=== PATIENT | female | born 1980 | race Caucasian/White ===

== ENCOUNTER 2016-08-27 14:19 | Emergency (ER) | payer SELFPAY ==
[2016-08-27 15:19] VITALS: TEMP 97.8
--- NOTE | 2016-08-27 15:38 | ED.PDOC ---
History of Present Illness - General Chief Complaint: Abdominal Pain Stated Complaint: abdominal pain Time Seen by Provider: 08/27/16 15:08 Source: patient Exam Limitations: no limitations - History of Present Illness Initial Comments: Patient presents with 4 hours of bilateral abdominal and back pain. It is constant but intermittent in intensity. Sharp in nature. Worse with movement, better with rest. + N but no V. No diarrhea. Last meal was this morning. No hematochezia. Is not currently menstruating. She had a similar pain with her LMP. She says that her mother had the same pain that turned out to be an ovarian cyst. Patient has had a C/S but no other surgeries. No other complaints. Timing/Duration: 4-6 hours Severity: moderate Improving Factors: rest Worsening Factors: movement Associated Symptoms: other - see HPI Allergies/Adverse Reactions: Allergies NO KNOWN ALLERGY Allergy (Verified 08/27/16 15:18) Home Medications: Ambulatory Orders Methylprednisolone [Medrol Dose Jack] 4 mg PO DAILY #1 pack 09/24/15 Ketorolac Tromethamine [Toradol Tabs] 10 mg PO Q6HRS PRN #10 tab 08/27/16 Review of Systems - Review of Systems Constitutional: States: no symptoms reported EENTM: States: no symptoms reported Respiratory: States: no symptoms reported Cardiology: States: no symptoms reported Gastrointestinal/Abdominal: States: see HPI Genitourinary: States: no symptoms reported Musculoskeletal: States: no symptoms reported Skin: States: no symptoms reported Neurological: States: no symptoms reported Endocrine: States: no symptoms reported Hematologic/Lymphatic: States: no symptoms reported Past Medical History (General) - Patient Medical History Hx Hypertension: No Hx Diabetes: No Surgical History: other - Vaccination History Hx Tetanus, Diphtheria Vaccination: Yes - Social History Hx Tobacco Use: Yes Hx Alcohol Use: Yes - occ Hx Substance Use: No Hx Substance Use Treatment: No Hx Depression: No - Activities of Daily Living Hospice Agency (if applicable):: None - Female History Patient is a Female of Child Bearing Age (10 -59 yrs old): Yes Patient : No - Triage Comment ED Triage Comment: LMP 3 weeks ago Family Medical History - Family History Mother Family History: No Known Living Status: Still Living Physical Exam - Physical Exam General Appearance: Alert Respiratory: lungs clear Cardiovascular/Chest: normal peripheral pulses, regular rate, rhythm Gastrointestinal/Abdominal: normal bowel sounds, soft, other - TTP at LUQ. No CVA tenderness. No guarding nor rebound. Negative Rovsing's. Negative Psoas and Obturator signs. Back Exam: no CVA tenderness Skin Exam: normal color Lymphatic: no adenopathy Progress - Progress Progress: 08/27/16 17:09 Labs wnl. Pelvic U/S found left ovarian cysts and uterine fibroids. Patient sent home with RX for toradol and orders to follow up with gynecology. Laboratory Tests 08/27/16 08/27/16 08/27/16 15:30 15:30 15:30 WBC 10.6 RBC 4.55 Hgb 14.3 Hct 42.0 MCV 92.5 MCH 31.4 H MCHC 34.0 RDW 13.9 Plt Count 249 MPV 7.2 L Absolute Neuts (auto) 7.10 H Absolute Lymphs (auto) 2.70 Absolute Monos (auto) 0.70 Absolute Eos (auto) 0.10 Absolute Basos (auto) 0.10 Neutrophils % 67.2 Lymphocytes % 25.4 Monocytes % 6.1 Eosinophils % 0.7 L Basophils % 0.6 Sodium 137 Potassium 3.6 Chloride 105 Carbon Dioxide 23 Anion Gap 12.6 BUN 17 Creatinine 0.59 L BUN/Creatinine Ratio 28.8 H Random Glucose 88 Serum Osmolality 274.8 L Calcium 9.2 Total Bilirubin 0.6 AST 19 ALT 19 Alkaline Phosphatase 41 L Serum Total Protein 7.0 Albumin 4.2 Globulin 2.8 Albumin/Globulin Ratio 1.5 Lipase 23 Urine HCG, Qual Negative Departure - Departure Clinical Impression: Fibroids, Ovarian cyst Disposition: Discharge to Home or Self Care Condition: Good Departure Forms: ED Discharge - Pt. Copy, Patient Portal Self Enrollment Instructions: DI for Abdominal Pain-Adult Diet: resume usual diet Activity: increase activity as tolerated Prescriptions: Ketorolac Tromethamine [Toradol Tabs] 10 mg PO Q6HRS PRN #10 tab PRN Reason: Pain Home Medications: Ambulatory Orders Methylprednisolone [Medrol Dose Jack] 4 mg PO DAILY #1 pack 09/24/15 Ketorolac Tromethamine [Toradol Tabs] 10 mg PO Q6HRS PRN #10 tab 08/27/16
--- NOTE | 2016-08-27 17:16 | US ---
EXAM DESCRIPTION: Pelvic,Non-OB CLINICAL HISTORY: 35 years Female abdominal pain COMPARISON: None. TECHNIQUE: Transvaginal real-time, heller scale imaging performed to evaluate the pelvis. FINDINGS: Uterus measures 9.3 x 4.2 x 4.3 cm. Endometrium 5 mm. There is an echogenic mass with some foci of calcification in the anterior aspect of the body of the uterus measuring 2.5 x 2.1 x 1.7 cm. Is appears myometrial. It compresses the endometrium slightly. Additional myometrial fibroid measures 2 x 2.2 cm. Minimal fluid in the cul-de-sac. Left ovary measures 2.5 x 2.7 x 3.8 cm with small follicles and normal blood flow. Right ovary measures 2.1 x 2.3 x 1.4 cm with normal blood flow and small follicles. IMPRESSION: Two discrete uterine fibroids Bilateral ovarian follicles which do not warrant follow-up. Electronically signed by: Radha Lopez 08/27/2016 5:14 PM CDT
[2016-08-27 18:26] VITALS: BP 144/77; O2SAT 98
== END 2016-08-27 18:17 | disposition home or self-care (01) ==
LOC: ER 14:19
DX: N83.202 Unspecified ovarian cyst, left side (principal); D25.9 Leiomyoma of uterus, unspecified; Z87.891 Personal history of nicotine dependence

== ENCOUNTER → 2018-12-03 | Outpatient (CLI) | payer OTHER ==
--- NOTE | 2018-12-03 15:49 | US ---
EXAM DESCRIPTION: Diagnostic Mammo,Bilateral (accession [id number]), Breast,Bilateral (accession [id number]): Ultrasound CLINICAL HISTORY: 38 yearsFemaleLUMP IN BOTH BREASTS palpable lumps in both breasts. Pea-sized. No personal or family history of breast cancer. Menarche age 11. Childbirth. Premenopausal. No HRT Lifetime risk of developing breast cancer (Tyrer-Cuzick model)(%): 9.0. COMPARISON: 2-D digital screening bilateral mammography 12/26/2015. TECHNIQUE: Bilateral CC, MLO, and LM projection full-field images, digital mammographic tomosynthesis technique. Bilateral 2-D digital full-field images. CC, MLO, and LM projections. CAD not available. . Transcutaneous scanning of the bilateral breasts utilizing heller-scale and Doppler modes. Scanning performed by the tuber machine operator and observation by Dr. Russo. Skin markers were used to indicate palpated masses. FINDINGS: The breast parenchymal density pattern is: Heterogeneously dense breast tissue, which may obscure small masses. No skin thickening or nipple retraction and marker on the upper outer quadrant of the posterior third of the right breast. Skin marker on the lower inner quadrant of the anterior third of the left breast. No mammographic abnormalities associated with the skin markers. Retroareolar calcification left. Bilateral solitary microcalcifications. Right axillary lymph nodes. No new focal, stellate mass or density, focal asymmetry , and no suspicious microcalcifications bilaterally. The fibroglandular densities have decreased since the prior study. Ultrasound: Scanning of the lower inner quadrant of the anterior third of the left breast. Scanning of the upper outer quadrant of the posterior third of the right breast. These are the locations of the skin markers and what patient palpates. Heterogeneous fibroglandular with minimal fatty replacement. No dominant solid mass or distinct cyst. No parenchymal edema or large calcifications. No overlying skin changes. IMPRESSION: Benign exam. BIRAD CATEGORY: 2 BENIGN FINDINGS. RECOMMENDATIONS: FOLLOW UP: Begin routine digital bilateral mammographic screening, one year interval from November 2018. Written communication explaining the IMPRESSION and follow-up, will be mailed to the patient and referring health care provider. According to the [employer], yearly mammograms are recommended starting at age 40 and continuing as long as a woman is in good health. Any breast change noted on a breast self-exam should be reported promptly to the patient's healthcare provider. Breast MRI is recommended for women with an approximately 20-25% or greater lifetime risk of breast cancer, including women with a strong family history of breast or ovarian cancer and women who have been treated for Hodgkin's disease. A negative mammographic report should not delay tissue diagnosis in patients with significant clinical history or physical findings. Extremely dense breast tissue limits the sensitivity of digital mammography. Electronically signed by: Ryne Russo MD 12/03/2018 3:48 PM CDT
== END ==
LOC: US 09:30
PROVIDERS: ATTEND Family Medicine
DX: N63.10 Unspecified lump in the right breast, unspecified quadrant (principal); N63.20 Unspecified lump in the left breast, unspecified quadrant